=== PATIENT | female | born 1975 | race Caucasian/White ===

== ENCOUNTER 2021-08-31 11:36 | Emergency (ER) | payer OTHER ==
[2021-08-31 11:43] VITALS: BP 124/77; PULSE 71; TEMP 97.9; BMI 31.2
== END 2021-08-31 13:05 | disposition home or self-care (01) ==
LOC: JER 11:36
DX: M79.10 Myalgia, unspecified site (principal); M25.50 Pain in unspecified joint
CPT/HCPCS: 99283-25